=== PATIENT | male | born 1975 ===

== ENCOUNTER 2022-04-16 15:27 | Inpatient (IN) | payer BC ==
[~2022-04-16 15:27] MED LIST: Iopamidol-370 76% 500 ML 1 ML ONE
[2022-04-16] MEDS ORDERED: Ondansetron PF 4 MG/2 ML Vial ONE (15:41)
[2022-04-16 15:50] LABS: Hemoglobin 13.1 g/dL (14.0-18.0); Mean Corpuscular Hemoglobin 30.2 pg (27.0-31.0); Mean Corpuscular Volume 88.6 fl (78.0-98.0); Mean Platelet Volume 7.7 fL (7.4-10.4); Platelet Count 326 10x3/uL (130-400); Red Blood Cell (RBC) Count 4.33 mill/uL (4.70-6.10); White Blood Cell (WBC) Count 24.2 10x3/uL (4.8-10.8)
[2022-04-16] MEDS ORDERED: Fentanyl 250 MCG/5 ML VIAL ONE (15:54)
[2022-04-16] MEDS ORDERED: Ketamine 50 MG/ML (10ML VIAL) ONE (15:54)
[2022-04-16] MEDS ORDERED: Midazolam HCl 5 mg/5 ml Vial ONE (15:54)
[2022-04-16] MEDS ORDERED: Norepinephrine 4 MG/4 ML VIAL ONE (15:55)
[2022-04-16] MEDS ORDERED: Vecuronium 10 MG VIAL ONE (16:00)
[2022-04-16] MEDS ORDERED: Succinylcholine Chloride 100 MG/5 ML SYRINGE FS ONE (16:00)
[2022-04-16] MEDS ORDERED: Rocuronium Bromide 10 MG/ML (10ML VIAL) ONE (16:00)
[2022-04-16] MEDS ORDERED: PHENYLEPHRINE-NS 100 MCG/ML 10 ML SYRINGE ONE (16:00)
[2022-04-16 16:02] LABS: INR-International Normal Ratio 1.1; Prothrombin Time 14.5 sec (12.0-14.7)
[2022-04-16 16:07] LABS: PTT 20.3 sec (22.9-36.1)
[2022-04-16 16:12] LABS: Eosinophils 2 % (0-10); Lymphocytes 12 % (21-51); MDiff Complete? YES; Monocytes 5 % (0-10); Neutrophil 78 % (42-75); Platelet Morphology Comment Appears Adequate; Polychromasia SLIGHT = 2-3 cells (100X) (0-2/hpf); Reactive Lymphocytes 3 % (0-10)
[2022-04-16 16:14] LABS: ALT (SGPT) 93 U/L (8-55); AST (SGOT) 69 U/L (5-34); Albumin 3.5 g/dL (3.5-5.0); Alkaline Phosphatase 45 U/L (40-110); Anion Gap 17 mmol/L (10-20); BUN (Urea Nitrogen) 21 mg/dL (8.9-20.6); Bilirubin, Total 0.2 mg/dL (0.2-1.2); Calc. Creatinine Clearance 0 mL/min (70-130); Calcium 8.3 mg/dL (7.8-10.44); Carbon Dioxide 19 mmol/L (22-29); Chloride 106 mmol/L (98-107); Estimated GFR 84; Globulin 2.5 g/dL (2.4-3.5); Glucose 174 mg/dL (70-105); Potassium 3.6 mmol/L (3.5-5.1); Sodium 138 mmol/L (136-145)
[2022-04-16] MEDS ORDERED: Iopamidol 45 ML ONE (16:59)
[2022-04-16] MEDS ORDERED: SUGAMMADEX SODIUM 200 MG/2 ML VIAL ONE (17:31)
[2022-04-16] MEDS ORDERED: Midazolam HCl 2 mg/2 ml Vial ONE (18:06)
[2022-04-16] MEDS ORDERED: Dextrose 50% Abboject 50 ML SYRINGE SLOW IVP PRN (18:53)
[2022-04-16] MEDS ORDERED: TETANUS, DIPHTHERIA TOX,ADULT (TDVAX) 0.5 ML VIAL IM ONE (18:53)
[2022-04-16] MEDS ORDERED: Ondansetron PF 4 MG/2 ML Vial IVP PRN (18:53)
[2022-04-16] MEDS ORDERED: Dextrose 5% in Water 1,000 ML IV PRN (18:53)
[2022-04-16] MEDS ORDERED: Fentanyl CADD 100 ML ONE (18:54)
[2022-04-16] MEDS ORDERED: Ventilator Sedation Protocol 1 EACH FS ONE (18:57)
[2022-04-16] MEDS ORDERED: Piperacillin/Tazobactam 3.375 GM in Sodium Chloride 0.9% 100 ML IVPB SCH ×2 (19:00→19:15)
[2022-04-16] MEDS: Sodium Chloride 0.9% 1,000 ML IV SCH (19:11)
[2022-04-16] MEDS ORDERED: Morphine 2 MG/ML VIAL SLOW IVP PRN (19:15)
[2022-04-16] MEDS ORDERED: Propofol 1,000 MG/100 ML VIAL IV PRN (19:15)
[2022-04-16] MEDS ORDERED: Propofol BOLUS 1,000 MG/100 ML VIAL IV PRN (19:15)
[2022-04-16] MEDS ORDERED: Lorazepam 2 MG/ML VIAL SLOW IVP PRN (19:15)
[2022-04-16] MEDS ORDERED: DISCONTINUE PREVIOUS NARCOTIC PAIN MEDICATIONS AND BENZODIAZEPINES FS SCH (19:15)
[2022-04-16 20:01] LABS: Actual Bicarbonate (HCO3a) 18.8 mEq/L (22-28); Base Excess (BEa) -7.5 mEq/L (-2.0 to +3.0); CO2 Tension 41.1 mmHg (35.0-45.0); Calcium, Ionized (arterial) 1.05 mmol/L (1.12-1.30); Carboxyhemoglobin (COHb) 0.3 gm% (0.0-3.0); Hemoglobin (Hb) 14.1 g/dL (14.0-18.0); O2 Tension (PaO2), arterial 227.5 mmHg (80.0-100.0); Potassium - ABG Lab 4.48 mmol/L (3.70-5.30); pH, Arterial 7.28 (7.35-7.45)
[2022-04-16 20:03] LABS: Hemoglobin 13.8 g/dL (14.0-18.0); Mean Corpuscular HGB CONC 33.8 g/dL (32.0-36.0); Mean Corpuscular Hemoglobin 30.1 pg (27.0-31.0); Mean Corpuscular Volume 89.2 fl (78.0-98.0); Mean Platelet Volume 7.3 fL (7.4-10.4); Platelet Count 322 10x3/uL (130-400); RBC Distribution Width 12.3 % (11.5-14.5); Red Blood Cell (RBC) Count 4.57 mill/uL (4.70-6.10); White Blood Cell (WBC) Count 31.8 10x3/uL (4.8-10.8)
[2022-04-16 20:03] LABS: Puncture Site Arterial Line
[2022-04-16 20:04] LABS: ALV-art Gradient 77.625 mmHg (0-20)
[2022-04-16 20:17] LABS: Band 7 % (5-11); Lymphocytes 9 % (21-51); MDiff Complete? YES; Monocytes 6 % (0-10); Neutrophil 77 % (42-75); Platelet Morphology Comment Appears Adequate; Polychromasia SLIGHT = 2-3 cells (100X) (0-2/hpf); Reactive Lymphocytes 1 % (0-10)
[2022-04-16 20:22] LABS: Anion Gap 11 mmol/L (10-20); BUN (Urea Nitrogen) 17 mg/dL (8.9-20.6); Calc. Creatinine Clearance 149 mL/min (70-130); Calcium 7.5 mg/dL (7.8-10.44); Carbon Dioxide 19 mmol/L (22-29); Chloride 112 mmol/L (98-107); Estimated GFR 108; Glucose 195 mg/dL (70-105); Potassium 4.6 mmol/L (3.5-5.1); Sodium 137 mmol/L (136-145)
[2022-04-16] MEDS ORDERED: Calcium Chloride 1 GM/10 ML Abboject SYRINGE IVP SCH (20:30)
[2022-04-16] MEDS: Famotidine/PF 20 mg/2ml Vial SLOW IVP SCH (21:29)
[2022-04-16 23:02] LABS: SARS-CoV-2 NAA Rapid Test Not Detected (NotDetected)
[2022-04-16] MEDS ORDERED: Lactated Ringer's 1,000 ML IV SCH (23:30)
[2022-04-16] MEDS ORDERED: Fentanyl BOLUS 250 ML IVPB PRN (23:45)
[2022-04-16] MEDS ORDERED: Fentanyl CADD 100 ML IV SCH (23:45)
[2022-04-17] MEDS: Piperacillin/Tazobactam 3.375 GM in Sodium Chloride 0.9% 100 ML IVPB SCH ×4 (01:00→23:04)
[2022-04-17] MEDS: Sodium Chloride 0.9% 1,000 ML IV SCH ×3 (04:56→19:23)
[2022-04-17 05:29] LABS: ALT (SGPT) 71 U/L (8-55); AST (SGOT) 43 U/L (5-34); Alkaline Phosphatase 31 U/L (40-110); Anion Gap 14 mmol/L (10-20); BUN (Urea Nitrogen) 24 mg/dL (8.9-20.6); Bilirubin, Total 0.5 mg/dL (0.2-1.2); Calc. Creatinine Clearance 96 mL/min (70-130); Calcium 7.8 mg/dL (7.8-10.44); Carbon Dioxide 22 mmol/L (22-29); Chloride 110 mmol/L (98-107); Estimated GFR 67; Globulin 2.1 g/dL (2.4-3.5); Glucose 156 mg/dL (70-105); Magnesium 1.6 mg/dL (1.6-2.6); Potassium 5.4 mmol/L (3.5-5.1); Protein, Total 5.1 g/dL (6.0-8.3); Sodium 141 mmol/L (136-145)
[2022-04-17] MEDS: Ipratropium/Albuterol 3 ML NEB NEB SCH ×3 (07:33→18:39)
[2022-04-17 07:38] LABS: Actual Bicarbonate (HCO3a) 22.8 mEq/L (22-28); Base Excess (BEa) -2.5 mEq/L (-2.0 to +3.0); CO2 Tension 41.4 mmHg (35.0-45.0); Calcium, Ionized (arterial) 1.11 mmol/L (1.12-1.30); Carboxyhemoglobin (COHb) 0.2 gm% (0.0-3.0); Hemoglobin (Hb) 12.4 g/dL (14.0-18.0); O2 Tension (PaO2), arterial 140.4 mmHg (80.0-100.0); Potassium - ABG Lab 4.92 mmol/L (3.70-5.30); pH, Arterial 7.36 (7.35-7.45)
[2022-04-17 07:39] LABS: Puncture Site RRA
[2022-04-17 07:42] LABS: Hemoglobin 11.5 g/dL (14.0-18.0); Mean Corpuscular HGB CONC 32.5 g/dL (32.0-36.0); Mean Corpuscular Hemoglobin 29.6 pg (27.0-31.0); Mean Platelet Volume 7.7 fL (7.4-10.4); Platelet Count 173 10x3/uL (130-400); RBC Distribution Width 12.3 % (11.5-14.5); Red Blood Cell (RBC) Count 3.88 mill/uL (4.70-6.10); White Blood Cell (WBC) Count 20.1 10x3/uL (4.8-10.8)
[2022-04-17] MEDS ORDERED: Calcium Chloride 1 GM/10 ML Abboject SYRINGE IVP SCH (07:45)
[2022-04-17 07:46] LABS: Phosphorus 3.1 mg/dL (2.3-4.7)
[2022-04-17 08:13] LABS: Anion Gap 11 mmol/L (10-20); BUN (Urea Nitrogen) 28 mg/dL (8.9-20.6); Calc. Creatinine Clearance 89 mL/min (70-130); Carbon Dioxide 24 mmol/L (22-29); Chloride 109 mmol/L (98-107); Estimated GFR 61; Glucose 152 mg/dL (70-105); Sodium 139 mmol/L (136-145)
[2022-04-17] MEDS: Famotidine/PF 20 mg/2ml Vial SLOW IVP SCH ×2 (08:13→20:14)
[2022-04-17] MEDS ORDERED: Calcium Chloride 13.6 MEQ in Sodium Chloride 0.9% 100 ML IVPB SCH (08:15)
[2022-04-17] MEDS ORDERED: FLU VACC QS2022-23(6MOS UP)/PF 60 MCG/0.5 ML SYRINGE IM ONE (09:00)
[2022-04-17] MEDS ORDERED: diphenhydrAMINE 25 MG CAP PO PRN (09:50)
[2022-04-17] MEDS ORDERED: Zolpidem Tartrate 5 MG TAB PO PRN (09:50)
[2022-04-17] MEDS ORDERED: Ondansetron PF 4 MG/2 ML Vial IVP PRN (09:50)
[2022-04-17] MEDS ORDERED: diphenhydrAMINE 50 MG/ML VIAL IVP PRN (09:50)
[2022-04-17] MEDS ORDERED: Promethazine HCl 25 MG/ML VIAL IM PRN (09:50)
[2022-04-17] MEDS ORDERED: Naloxone HCl 0.4 mg/ml Vial IV PRN (09:50)
[2022-04-17] MEDS ORDERED: diphenhydrAMINE 50 MG/ML VIAL IM PRN (09:50)
[2022-04-17] MEDS ORDERED: Communication Order-Pharmacy FS SCH (10:00)
[2022-04-17 10:14] LABS: Band 25 % (5-11); Lymphocytes 9 % (21-51); MDiff Complete? YES; Monocytes 2 % (0-10); Neutrophil 62 % (42-75); Platelet Morphology Comment Appears Adequate; Polychromasia SLIGHT = 2-3 cells (100X) (0-2/hpf); Reactive Lymphocytes 2 % (0-10); Vacuoles SLIGHT
[2022-04-17] MEDS: HYDROmorphone 10 mg/100 ml CADD IVPB PRN (10:45)
[2022-04-17] MEDS ORDERED: Fentanyl CADD 0 ML ONE (10:46)
[2022-04-17 14:38] LABS: Hemoglobin 11.3 g/dL (14.0-18.0)
[2022-04-17] MEDS: cloNIDine 0.2 MG TAB PO SCH (19:23)
[2022-04-17 19:30] LABS: #Monocytes 2.3 thou/uL (0.11-0.59); %Eosinophils 0.1 % (0.0-10.0); %Lymphocytes 4.5 % (21.0-51.0); %Monocytes 10.1 % (0.0-10.0); %Neutrophils 85.2 % (42.0-75.0); Hemoglobin 10.8 g/dL (14.0-18.0); Mean Corpuscular HGB CONC 33.3 g/dL (32.0-36.0); Mean Corpuscular Hemoglobin 30.3 pg (27.0-31.0); Mean Platelet Volume 7.6 fL (7.4-10.4); Platelet Count 192 10x3/uL (130-400); RBC Distribution Width 12.5 % (11.5-14.5); Red Blood Cell (RBC) Count 3.56 mill/uL (4.70-6.10); White Blood Cell (WBC) Count 22.3 10x3/uL (4.8-10.8)
[2022-04-17] MEDS ORDERED: Magnesium 2 GM/50 ML(in water) 2 GM in Premix Bag 1 BAG IVPB SCH (20:00)
[2022-04-18] MEDS: cloNIDine 0.2 MG TAB PO SCH ×4 (01:06→20:05)
[2022-04-18] MEDS: Sodium Chloride 0.9% 1,000 ML IV SCH ×3 (04:25→17:48)
[2022-04-18 05:09] LABS: #Lymphocytes 0.6 thou/uL (1.20-3.40); #Monocytes 1.3 thou/uL (0.11-0.59); #Neutrophils 12.3 thou/uL (1.40-6.50); %Eosinophils 0.1 % (0.0-10.0); %Lymphocytes 4.5 % (21.0-51.0); %Monocytes 9.4 % (0.0-10.0); %Neutrophils 86.1 % (42.0-75.0); Hemoglobin 10.8 g/dL (14.0-18.0); Mean Corpuscular HGB CONC 32.9 g/dL (32.0-36.0); Mean Corpuscular Hemoglobin 30.4 pg (27.0-31.0); Mean Corpuscular Volume 92.2 fl (78.0-98.0); Mean Platelet Volume 7.8 fL (7.4-10.4); Platelet Count 144 10x3/uL (130-400); RBC Distribution Width 12.5 % (11.5-14.5); Red Blood Cell (RBC) Count 3.56 mill/uL (4.70-6.10); White Blood Cell (WBC) Count 14.3 10x3/uL (4.8-10.8)
[2022-04-18 05:32] LABS: Anion Gap 11 mmol/L (10-20); BUN (Urea Nitrogen) 15 mg/dL (8.9-20.6); Calc. Creatinine Clearance 118 mL/min (70-130); Calcium 8.4 mg/dL (7.8-10.44); Carbon Dioxide 24 mmol/L (22-29); Chloride 108 mmol/L (98-107); Estimated GFR 87; Glucose 156 mg/dL (70-105); Potassium 4.5 mmol/L (3.5-5.1); Sodium 138 mmol/L (136-145)
[2022-04-18 05:37] LABS: Phosphorus 2.1 mg/dL (2.3-4.7)
[2022-04-18] MEDS: HYDROmorphone 10 mg/100 ml CADD IVPB PRN (05:38)
[2022-04-18] MEDS ORDERED: fentaNYL PF 100 MCG/2 ML SYRINGE ONE (06:39)
[2022-04-18] MEDS ORDERED: Bupivacaine/Epinephrine 0.25% 30 ML VIAL ONE (07:21)
[2022-04-18] MEDS ORDERED: Sodium Phosphate 30 MMOL in Sodium Chloride 0.9% 250 ML 250 ML IVPB SCH (07:45)
[2022-04-18] MEDS: Ipratropium/Albuterol 3 ML NEB NEB SCH ×3 (07:45→18:20)
[2022-04-18] MEDS ORDERED: Succinylcholine Chloride 100 MG/5 ML SYRINGE FS ONE (07:50)
[2022-04-18] MEDS ORDERED: Lidocaine 1% PF 5 ML VIAL ONE (07:50)
[2022-04-18] MEDS ORDERED: PHENYLEPHRINE-NS 100 MCG/ML 10 ML SYRINGE ONE (07:50)
[2022-04-18] MEDS ORDERED: Rocuronium Bromide 10 MG/ML (10ML VIAL) ONE (07:50)
[2022-04-18] MEDS ORDERED: PROPOFOL 200 MG/20 ML VIAL ONE (07:50)
[2022-04-18] MEDS ORDERED: Ondansetron PF 4 MG/2 ML Vial ONE (07:50)
[2022-04-18] MEDS ORDERED: SUGAMMADEX SODIUM 200 MG/2 ML VIAL ONE (08:55)
[2022-04-18] MEDS ORDERED: Famotidine 20 MG TAB PO SCH (09:00)
[2022-04-18] MEDS: Piperacillin/Tazobactam 3.375 GM in Sodium Chloride 0.9% 100 ML IVPB SCH ×3 (10:05→23:01)
[2022-04-18] MEDS ORDERED: cloNIDine 0.2 MG TAB PO SCH (10:30)
[2022-04-18 12:08] VITALS: BMI 27.0
[2022-04-18] MEDS: Famotidine/PF 20 mg/2ml Vial SLOW IVP SCH (20:05)
[2022-04-19] MEDS: cloNIDine 0.2 MG TAB PO SCH ×4 (01:01→21:00)
[2022-04-19] MEDS: Sodium Chloride 0.9% 1,000 ML IV SCH ×2 (02:36→11:57)
[2022-04-19] MEDS: Ipratropium/Albuterol 3 ML NEB NEB SCH ×3 (07:00→18:34)
[2022-04-19] MEDS: Famotidine/PF 20 mg/2ml Vial SLOW IVP SCH (08:20)
[2022-04-19] MEDS: Piperacillin/Tazobactam 3.375 GM in Sodium Chloride 0.9% 100 ML IVPB SCH ×2 (08:20→16:14)
[2022-04-19] MEDS: HYDROmorphone 10 mg/100 ml CADD IVPB PRN (11:56)
[2022-04-19] MEDS: Pantoprazole 40 MG VIAL IVP SCH (21:00)
[2022-04-20] MEDS: Piperacillin/Tazobactam 3.375 GM in Sodium Chloride 0.9% 100 ML IVPB SCH ×3 (00:50→15:00)
[2022-04-20] MEDS: Sodium Chloride 0.9% 1,000 ML IV SCH (02:00)
[2022-04-20] MEDS: cloNIDine 0.2 MG TAB PO SCH ×3 (02:00→15:14)
[2022-04-20 06:01] LABS: #Eosinphils 0.2 thou/uL (0.0-0.7); #Lymphocytes 1.1 thou/uL (1.20-3.40); #Neutrophils 7.9 thou/uL (1.40-6.50); %Basophils 0.1 % (0.0-1.0); %Eosinophils 1.9 % (0.0-10.0); %Lymphocytes 10.8 % (21.0-51.0); %Monocytes 9.7 % (0.0-10.0); %Neutrophils 77.5 % (42.0-75.0); Mean Corpuscular Hemoglobin 30.7 pg (27.0-31.0); Mean Corpuscular Volume 92.9 fl (78.0-98.0); Mean Platelet Volume 7.5 fL (7.4-10.4); Platelet Count 159 10x3/uL (130-400); RBC Distribution Width 12.2 % (11.5-14.5); Red Blood Cell (RBC) Count 2.28 mill/uL (4.70-6.10); White Blood Cell (WBC) Count 10.2 10x3/uL (4.8-10.8)
[2022-04-20 06:27] LABS: Anion Gap 9 mmol/L (10-20); BUN (Urea Nitrogen) 13 mg/dL (8.9-20.6); Calc. Creatinine Clearance 130 mL/min (70-130); Carbon Dioxide 25 mmol/L (22-29); Chloride 107 mmol/L (98-107); Estimated GFR 96; Glucose 108 mg/dL (70-105); Phosphorus 1.9 mg/dL (2.3-4.7); Potassium 3.4 mmol/L (3.5-5.1); Sodium 138 mmol/L (136-145)
[2022-04-20] MEDS: Ipratropium/Albuterol 3 ML NEB NEB SCH ×3 (07:00→18:50)
[2022-04-20] MEDS: Pantoprazole 40 MG VIAL IVP SCH ×2 (08:44→21:45)
[2022-04-20] MEDS: HYDROmorphone 10 mg/100 ml CADD IVPB PRN (08:50)
[2022-04-20] MEDS ORDERED: Potassium Phosphate 30 MMOL in Sodium Chloride 0.9% 250 ML 250 ML IVPB SCH (09:00)
[2022-04-20 10:54] LABS: #Eosinphils 0.2 thou/uL (0.0-0.7); #Lymphocytes 0.9 thou/uL (1.20-3.40); #Monocytes 1.1 thou/uL (0.11-0.59); #Neutrophils 7.6 thou/uL (1.40-6.50); %Basophils 0.1 % (0.0-1.0); %Eosinophils 2.1 % (0.0-10.0); %Lymphocytes 9.2 % (21.0-51.0); %Monocytes 10.9 % (0.0-10.0); %Neutrophils 77.6 % (42.0-75.0); Hemoglobin 7.3 g/dL (14.0-18.0); Mean Corpuscular HGB CONC 32.8 g/dL (32.0-36.0); Mean Corpuscular Hemoglobin 30.7 pg (27.0-31.0); Mean Corpuscular Volume 93.7 fl (78.0-98.0); Mean Platelet Volume 7.4 fL (7.4-10.4); Platelet Count 165 10x3/uL (130-400); RBC Distribution Width 12.2 % (11.5-14.5); Red Blood Cell (RBC) Count 2.36 mill/uL (4.70-6.10); White Blood Cell (WBC) Count 9.8 10x3/uL (4.8-10.8)
[2022-04-20] MEDS: cloNIDine 0.1 MG TAB PO SCH (21:45)
[2022-04-21] MEDS ORDERED: Piperacillin/Tazobactam 3.375 GM VIAL ONE (00:12)
[2022-04-21] MEDS: Piperacillin/Tazobactam 3.375 GM in Sodium Chloride 0.9% 100 ML IVPB SCH ×3 (01:27→15:57)
[2022-04-21] MEDS: cloNIDine 0.1 MG TAB PO SCH ×4 (01:29→22:10)
[2022-04-21] MEDS: HYDROmorphone 10 mg/100 ml CADD IVPB PRN (05:29)
[2022-04-21] MEDS: Ipratropium/Albuterol 3 ML NEB NEB SCH ×3 (06:50→19:00)
[2022-04-21 08:30] LABS: #Lymphocytes 0.9 thou/uL (1.20-3.40); %Basophils 0.2 % (0.0-1.0); %Lymphocytes 9.3 % (21.0-51.0); Hemoglobin 7.4 g/dL (14.0-18.0); White Blood Cell (WBC) Count 9.5 10x3/uL (4.8-10.8)
[2022-04-21 08:49] LABS: #Eosinphils 0.2 thou/uL (0.0-0.7); #Monocytes 1.2 thou/uL (0.11-0.59); #Neutrophils 7.2 thou/uL (1.40-6.50); %Monocytes 12.4 % (0.0-10.0); %Neutrophils 76.1 % (42.0-75.0); Mean Corpuscular HGB CONC 33.6 g/dL (32.0-36.0); Mean Corpuscular Hemoglobin 30.9 pg (27.0-31.0); Mean Corpuscular Volume 91.8 fl (78.0-98.0); Platelet Count 179 10x3/uL (130-400); RBC Distribution Width 12.1 % (11.5-14.5)
[2022-04-21] MEDS: Pantoprazole 40 MG VIAL IVP SCH ×2 (08:58→22:20)
[2022-04-21] MEDS ORDERED: MD-Gastroview 120 ML BOT ONE (11:21)
[2022-04-21] MEDS ORDERED: Morphine 2 MG/ML VIAL SLOW IVP PRN (14:27)
[2022-04-21] MEDS ORDERED: Cyclobenzaprine 10 MG TAB PO PRN (14:27)
[2022-04-21] MEDS: Acetaminophen 500 MG TAB PO SCH ×2 (15:57→22:09)
[2022-04-21] MEDS: traMADol HCl 50 MG TAB PO PRN (15:57)
[2022-04-21] MEDS: traMADol HCl 50 MG TAB PO SCH (17:55)
[2022-04-21] MEDS: Senokot S 8.6-50 MG TAB PO SCH (22:11)
[2022-04-22] MEDS: Piperacillin/Tazobactam 3.375 GM in Sodium Chloride 0.9% 100 ML IVPB SCH ×3 (00:40→15:00)
[2022-04-22] MEDS: traMADol HCl 50 MG TAB PO SCH ×4 (00:40→17:30)
[2022-04-22] MEDS: Acetaminophen 500 MG TAB PO SCH ×4 (03:35→20:44)
[2022-04-22] MEDS: cloNIDine 0.1 MG TAB PO SCH ×4 (03:35→20:43)
[2022-04-22] MEDS: Ipratropium/Albuterol 3 ML NEB NEB SCH ×3 (06:45→19:35)
[2022-04-22] MEDS: Pantoprazole 40 MG VIAL IVP SCH ×2 (08:10→20:43)
[2022-04-22] MEDS: Senokot S 8.6-50 MG TAB PO SCH ×2 (08:10→20:44)
[2022-04-22] MEDS: Polyethylene Glycol 3350 17 GM Packet PO SCH (08:10)
[2022-04-22] MEDS: Ferrous Sulfate 325 MG TAB PO SCH (17:30)
[2022-04-22] MEDS: Ascorbic Acid 500 mg Chewable Tablet PO SCH (20:44)
[2022-04-22] MEDS: Simethicone Chewable 80 MG TAB PO PRN (21:08)
[2022-04-23] MEDS: Piperacillin/Tazobactam 3.375 GM in Sodium Chloride 0.9% 100 ML IVPB SCH ×2 (00:59→10:11)
[2022-04-23] MEDS: cloNIDine 0.1 MG TAB PO SCH ×2 (00:59→09:38)
[2022-04-23] MEDS: traMADol HCl 50 MG TAB PO SCH ×3 (00:59→12:36)
[2022-04-23] MEDS: Acetaminophen 500 MG TAB PO SCH ×3 (03:00→09:41)
[2022-04-23] MEDS: Simethicone Chewable 80 MG TAB PO PRN (06:06)
[2022-04-23] MEDS: Ipratropium/Albuterol 3 ML NEB NEB SCH ×2 (06:27→11:58)
[2022-04-23] MEDS ORDERED: Ferrous Sulfate 325 MG TAB PO SCH (09:00)
[2022-04-23] MEDS ORDERED: Ascorbic Acid 500 mg Chewable Tablet PO SCH (09:00)
[2022-04-23] MEDS: traMADol HCl 50 MG TAB PO PRN (09:35)
[2022-04-23] MEDS: Pantoprazole 40 MG VIAL IVP SCH (09:37)
[2022-04-23] MEDS: Polyethylene Glycol 3350 17 GM Packet PO SCH (09:39)
[2022-04-23] MEDS: Senokot S 8.6-50 MG TAB PO SCH (09:39)
[2022-04-23] MEDS: Ferrous Sulfate 325 MG TAB PO SCH (10:11)
[2022-04-23 12:03] VITALS: BP 105/67; TEMP 98.5
[2022-04-24 20:10] LABS: Lipase-Fluid 30 U/L (.)
== END 2022-04-23 13:35 | disposition home or self-care (01) | DRG 957 ==
LOC: ERS 15:27 → SDC/OP 15:33 → CCU 15:55 → SURG A 04-19 17:27
PROVIDERS: ADMIT Surgery; ATTEND Surgery
PROC: 0DBL0ZZ Excision of Transverse Colon, Open Approach (ICD-10-PCS; principal; 2022-04-16)
PROC: 0DQ90ZZ Repair Duodenum, Open Approach (ICD-10-PCS; 2022-04-16)
PROC: 0DQ60ZZ Repair Stomach, Open Approach (ICD-10-PCS; 2022-04-16)
PROC: 0D9670Z Drainage of Stomach with Drainage Device, Via Natural or Artificial Opening (ICD-10-PCS; 2022-04-16)
PROC: 30233N1 Transfusion of Nonautologous Red Blood Cells into Peripheral Vein, Percutaneous Approach (ICD-10-PCS; 2022-04-16)
PROC: 0DJW0ZZ Inspection of Peritoneum, Open Approach (ICD-10-PCS; 2022-04-18)
DX: S37.031A Laceration of right kidney, unspecified degree, initial encounter (principal); K65.9 Peritonitis, unspecified; S36.113A Laceration of liver, unspecified degree, initial encounter; T79.4XXA Traumatic shock, initial encounter; S36.39XA Other injury of stomach, initial encounter; S36.23 Laceration of pancreas, unspecified degree; S36.430A Laceration of duodenum, initial encounter; S36.33XA Laceration of stomach, initial encounter; N17.9 Acute kidney failure, unspecified; Z20.822 Contact with and (suspected) exposure to COVID-19; E78.00 Pure hypercholesterolemia, unspecified; E87.5 Hyperkalemia; K21.9 Gastro-esophageal reflux disease without esophagitis; W32.0XXA Accidental handgun discharge, initial encounter
CPT/HCPCS: 36415; 36416; 36430; 36600; 47532; 71045; 71260; 74018; 74177; 74240; 80048; 80053; 80307; 82150; 82805; 83605; 83690; 83735; 84100; 85025; 86850; 86900; 86901; 90471; 93005; 94002; 94003; 94640; 96365; 97139; C1713; C1776; C9113; G0390; J1650; J2250; J2405; J2543; J2704; J3010; J3475; J3490; J7050; J7120; J7620; P9016; Q9963; Q9967; S0028; U0002